=== PATIENT | male | born 1940 | race Two or more races ===

== ENCOUNTER 2017-07-10 06:37 | Day surgery (SDC) | payer MEDICARE, BC, SELFPAY ==
--- NOTE | 2017-07-06 14:50 | Pre-Procedure Note/Attestation ---
Pre-Procedure Note/Attestation Complete Prior to Procedure Planned Procedure: right Procedure Narrative: 1. CATARACT EXTRACTION WITH PHACO AND PC IOL IMPLANTATION, RIGHT EYE. 2.LIMBAL RELAXING INCISION, RIGHT EYE. 3.MALYUGIN RING INSERTION, RIGHT EYE FOR FLOPPY IRIS SYNDROME. 4.COMPLEX CATARACT , RIGHT EYE Indications for Procedure Pre-Operative Diagnosis: 1. CATARACT ,RIGHT EYE. 2. ASTIGMATISM, RIGHT EYE. 3. FLOPPY IRIS SYNDROME,RIGHT EYE 4. COMPLEX CATARACT , RIGHT EYE. Attestation I attest that I discussed the nature of the procedure; its benefits; risks and complications; and alternatives (and the risks and benefits of such alternatives ), prior to the procedure, with the patient (or the patient's legal business office representative). I attest that, if there was a reasonable possibility of needing a blood transfusion, the patient (or the patient's legal business office representative) was given the [facility] standardized written summary, pursuant to the Celestino Erick Blood Safety Act ([place] Health and Safety Code # 1645, as amended). I attest that I re-evaluated the patient just prior to the surgery and that there has been no change in the patient's H&P, except as documented below: TANK LARA Jul 06, 2017 14:50
[2017-07-10] VITALS (9 sets, daily range): BP systolic 139–188; BP diastolic 59–88
[~2017-07-10] VITALS: Ht 172.7 cm; Wt 73.5 kg
[2017-07-10] MEDS: Diclofenac Sod 0.1% Op Soln RIGHT EYE SCH ×3 (06:00→06:10)
[~2017-07-10 06:37] MED LIST: ASPIR 8181 MG ORAL; CALTRATE 600 +1 EAC2 PO; HYDREA500 MG PO; HYTRIN5 MG PO; ONE DAILY MEN'1 EAC1 PO; PROSCAR5 MG ORAL; VITAMIN B122500 MCG PO; VITAMIN D31000 UNI2 PO; [UNRECOGNIZED DRUG - OTHER] PO; acetaZOLAMIDE 125mg tab ORAL ONE
[2017-07-10] MEDS ORDERED: Dexamethasone 4mg/ml vial ONE (07:12)
[2017-07-10] MEDS ORDERED: Povidone-Iodine 5% opth solution ONE (07:12)
[2017-07-10] MEDS ORDERED: BSS 500ml btl ONE (07:12)
[2017-07-10] MEDS ORDERED: DiphenhydrAMINE 50mg/ml Inj ONE (07:12)
[2017-07-10] MEDS ORDERED: EPINEPHrine 1mg/1ml Amp ONE (07:12)
[2017-07-10] MEDS ORDERED: Sodium Hyaluronate 10 mg/ml 0.85ml ONE (07:13)
[2017-07-10] MEDS ORDERED: BSS 15ml BTL ONE (07:13)
[2017-07-10] MEDS ORDERED: Lidocaine 1% MPF 10mg/ml 5ml ONE ×2 (07:14→08:45)
[2017-07-10] MEDS ORDERED: Vigamox Opth Soln ONE (07:36)
[2017-07-10] MEDS ORDERED: Akten 3.5% 1ml Btl ONE (07:36)
[2017-07-10] MEDS ORDERED: Diclofenac Sod 0.1% Op Soln ONE (07:36)
[2017-07-10] MEDS ORDERED: Phenylephrine 10% Opth Soln 5ml ONE (07:36)
[2017-07-10] MEDS ORDERED: Tropicamide 1% Opth Soln ONE (07:36)
--- NOTE | 2017-07-10 07:42 | Anethesia Preoperative Eval ---
Anesthesia Pre-op PMH/ROS General Date of Evaluation: Jul 10, 2017 Anesthesiologist: Jesu ASA Score: ASA 2 Mallampati Score Class I : Soft palate, uvula, fauces, pillars visible Class II: Soft palate, uvula, fauces visible Class III: Soft palate, base of uvula visible Class IV: Only hard plate visible Mallampati Classification: Class II Surgeon: Sheila Diagnosis: Right cataract Surgical Procedure: Right cataract extraction with IOL Anesthesia History: none Family History: no anesthesia problems Allergies: Coded Allergies: NO KNOWN ALLERGIES (Verified Allergy, Unknown, 04/21/16) Medications: see eMAR Past Medical History Cardiovascular: Reports: HTN, arrhythmia, Denies: CAD, PA, other, valve dz Pulmonary: Denies: COPD, [place], asthma, other Gastrointestinal/Genitourinary: Denies: CRI, ESRD, GERD, other Neurologic/Psychiatric: Denies: CVA, TIA, dementia, depression/anxiety, other Endocrine: Reports: DM, hypothyroidism, Denies: other, steroids HEENT: Reports: cataract (R), Denies: [place] (L), [place] (R), cataract (L), glaucoma, other Hematology/Immune: Reports: anemia - chronic, Denies: DVT, bleeding disorder, other Musculoskeletal/Integumentary: Reports: OA, Denies: DDD, DJD, RA, edema, other PSxH Narrative: Denies Anesthesia Pre-op Phys. Exam Physician Exam see chart Constitutional: NAD Cardiovascular: RRR Respiratory: CTA Airway Exam Mallampati Score: Class II MO: limited ROM: limited Teeth: missing, intact Anesthesia Pre-op A/P Labs see chart Studies Pre-op Studies: EKG - RBBB Risk Assessment & Plan Assessment: ASA II Plan: MAC Status Change Before Surgery: No Pre-Antibiotics Drug: N/A ZEYNEP FRANCO M.D. Jul 10, 2017 07:42
[2017-07-10] MEDS: Phenylephrine 10% Opth Soln 5ml RIGHT EYE SCH ×3 (07:49→08:06)
[2017-07-10] MEDS: Akten 3.5% 1ml Btl RIGHT EYE SCH ×3 (07:49→08:06)
[2017-07-10] MEDS: Tropicamide 1% Opth Soln RIGHT EYE SCH ×3 (07:49→08:06)
[2017-07-10] MEDS: Vigamox Opth Soln RIGHT EYE SCH ×3 (07:50→08:06)
[2017-07-10 08:31] LABS: BASOPHILS % (AUTO) 2.2 % (0.0-2.0); EOSINOPHILS % (AUTO) 0.4 % (0.0-3.0); LYMPHOCYTES % (AUTO) 15.9 % (20.0-45.0); MEAN CORPUSCULAR HEMOGLOBIN 28.8 PG (27.0-31.0); MEAN CORPUSCULAR HGB CONC 32.4 G/DL (32.0-36.0); MEAN CORPUSCULAR VOLUME 89 FL (80-99); MEAN PLATELET VOLUME 6.5 FL (6.5-10.1); MONOCYTES % (AUTO) 7.9 % (1.0-10.0); NEUTROPHILS % (AUTO) 73.6 % (45.0-75.0); PLATELET COUNT 504 K/UL (150-450); RED BLOOD COUNT 3.24 M/UL (4.70-6.10); RED CELL DISTRIBUTION WIDTH 17.2 % (11.6-14.8); WHITE BLOOD COUNT 5.4 K/UL (4.8-10.8)
[2017-07-10 08:39] LABS: ANION GAP 4 (5-15); CALCIUM 9.4 mg/dL (8.6-10.2); CARBON DIOXIDE 26 mEQ/L (20-30); CHLORIDE 106 mEQ/L (98-107); CREATININE 1.1 mg/dL (0.7-1.2); HEMOLYSIS 0; POTASSIUM 4.1 mEQ/L (3.4-4.9); SODIUM 136 mEQ/L (135-145)
[2017-07-10] MEDS ORDERED: Sterile Water Irrig 1000ml IRRIG ONE (08:45)
[2017-07-10] MEDS ORDERED: NS Irrig 1000ml ONE (08:45)
[2017-07-10] MEDS ORDERED: fentaNYL 100 mcg/2 mL IV ONE (08:45)
[2017-07-10] MEDS ORDERED: LR 1000ml ONE (08:45)
--- NOTE | 2017-07-10 09:09 | Immediate Post-Op Evaluation ---
Immediate Post-Op Evalulation Immediate Post-Op Evalulation Procedure: Right cataract extraction with IOL Date of Evaluation: Jul 10, 2017 Time of Evaluation: 09:43 IV Fluids: 200 Blood Products: 0 Estimated Blood Loss: 0 Urinary Output: 0 Blood Pressure Systolic: 148 Blood Pressure Diastolic: 98 Pulse Rate: 51 Respiratory Rate: 16 O2 Sat by Pulse Oximetry: 99 Temperature (Fahrenheit): 97.4 Pain Score (1-10): 0 Nausea: No Vomiting: No Complications 0 Patient Status: awake, reacts, patent, none Hydration Status: adequate Drug: N/A ZEYNEP FRANCO M.D. Jul 10, 2017 09:09
[2017-07-10] MEDS ORDERED: LR 1000ml 1,000 ML IVLG SCH (09:10)
--- NOTE | 2017-07-10 09:10 | 48 Hour Post Anesthesia Eval ---
Post Anesthesia Evaluation Procedure: Right cataract extraction with IOL Date of Evaluation: Jul 10, 2017 Blood Pressure Systolic: 159 0: 76 Pulse Rate: 78 Respiratory Rate: 16 Temperature (Fahrenheit): 97 O2 Sat by Pulse Oximetry: 99 Airway: patent Nausea: No Vomiting: No Pain Intensity: 0 Hydration Status: adequate Cardiopulmonary Status: at baseline Mental Status/LOC: patient returned to baseline Post-Anesthesia Complications: 0 Follow-up care needed: ready to discharge ZEYNEP FRANCO M.D. Jul 10, 2017 09:10
[2017-07-10] MEDS ORDERED: DiphenhydrAMINE 50mg/ml Inj IVP PRN (09:15)
--- NOTE | 2017-07-10 09:37 | Discharge Summary ---
Discharge Summary Discharge Summary Discharge Summary DATE OF ADMISSION: 07/10/2017 DATE OF DISCHARGE: 07/10/2017 REASON FOR HOSPITALIZATION:1- cataract right eye 2- floppy iris syndrome, right eye 3- Complex cataract,right eye SURGERY PERFORMED: CONDITION IN THE HOSPITAL:The patient tolerated the surgery without complications. DISCHARGE CONDITION: The patient was stable at discharge. DISCHARGE MEDICATIONS: 1. Vigamox eye drops one drop q.i.d, right eye 2. Prednisolone one drop q.i.d, right eye 3. Ilevro one drop qd, right eye POSTOPERATIVE ORDERS: The patient has to rest at home. No bending, No lifting, No watching Television tonight. POSTOPERATIVE FOLLOW UP: The patient will be followed in my office tomorrow morning at 7 o'clock. TANK LARA Jul 10, 2017 09:37
--- NOTE | 2017-07-10 09:40 | Brief Operative Note ---
Immediate Post Operative Note Operative Note Chief Complaint: Blurry vision difficulty driving and reading, right eye Pre-op Diagnosis: 1. CATARACT ,RIGHT EYE. 2. ASTIGMATISM, RIGHT EYE. 3. FLOPPY IRIS SYNDROME,RIGHT EYE 4. COMPLEX CATARACT , RIGHT EYE. Procedure: 1- Cataract extraction with phaco and PC IOL implantation, right eye 2- Malyugin ring insertion for floppy iris treatment 3- Complex cataract extraction, right eye Post-op Diagnosis: same as pre-op Surgeon: Tank Jauregui MD. Nanny/Household Manager: None Additional Surgeons: NOne Anesthesiologist: dr. Nails Anesthesia: MAC Specimen: none Complications: none Condition: stable Estimated Blood Loss: none Drains: none Implant(s) used?: Yes - Multifical PC IOl implanted in the right eye without complication TANK JAUREGUI Jul 10, 2017 09:40
--- NOTE | 2017-07-10 17:30 | Pre-op HX & Phy Repo 2 SIG ---
DATE OF ADMISSION: 07/10/2017 PRESURGICAL INTERNAL MEDICINE HISTORY AND PHYSICAL REASON FOR EVALUATION: I was asked by Dr. Raghav Jauregui to see this 77-year-old male who is going for elective surgery on the right eye. The patient has a cataract, right eye. Please see full Ophthalmology H and P by Dr. Raghav Jauregui. The patient was evaluated. Chart was reviewed. Past Medical History/Review Of Systems: Remarkable for history of benign prostatic hypertrophy, history of thrombocytosis, and history of osteoarthritis. Denies history of high blood pressure, chest pain, palpitation, or heart attack. No history of stroke or seizures. Denies history of GI bleeding or heartburn. Colonoscopy 3 years ago at [facility]. No history of thyroid problem. History of anemia, and he received treatment in the Hematology/Oncology office of 02:31. Denies history of renal failure. No thyroid problem. ALLERGIES: Denies allergy to medication or food. FAMILY HISTORY: Father from complication of brain tumor. Mother had osteoarthritis and from heart attack. SOCIAL HISTORY: The patient has a history of smoking. Alcohol occasionally. No street drugs. Current Medications: Proscar, Hytrin, vitamin B12, multivitamin, vitamin D3, calcium supplements, baby aspirin daily. 04:24. The patient was on 04:34 for more than 7 years. PHYSICAL EXAMINATION: GENERAL: The patient is an alert, well-developed, well-nourished male, in his 70s, no acute distress. VITAL SIGNS: Blood pressure 152/77, temperature 97.5, heart rate 64, and respirations 18. SKIN: Pale, dry, and warm. LYMPHATICS: Lymph nodes not enlarged. HEENT: Head, normocephalic and atraumatic. Ears, no discharge, clear. Eyes, full description per Dr. Raghav Jauregui. No conjunctivitis or jaundice. Mouth, clear and moist. No dentures. NECK: Supple. No jugular vein distention. Carotid pulses 2+. Trachea midline. CHEST: No deformity or asymmetry. LUNGS: Clear to auscultation and percussion. No rales or rhonchi. No wheezing. HEART: Sinus bradycardia, 51 per minute. No ectopy. No murmur. No S3 or S4. ABDOMEN: Soft. No rebound. No palpable mass. EXTREMITIES: No edema. No varicose veins. No calf tenderness. GENITOURINARY: History of BPH. Nocturia x3. CVA nontender. No renal failure. NEUROLOGIC: No tremor. No nystagmus. LABORATORY AND DIAGNOSTIC DATA: Fasting blood sugar 99, BUN 22, and creatinine 1.2. Hemoglobin 9.3. Electrocardiogram, sinus bradycardia, sinus arrhythmia, first-degree AV block, right bundle-branch block. IMPRESSION: 1. Cataract, right eye. 2. Benign prostatic hypertrophy. 3. Anemia. 4. History of thrombocytosis. 5. 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 PLAN: Cataract extraction, right eye with intraocular lens implant by Dr. Raghav Jauregui. CONCLUSION: The patient is alert. Vital signs stable. The patient is anemic and has a history of benign prostatic hypertrophy. The patient's vital signs stable. The patient's condition optimized for surgery. He did not eat or drink from last night. Thank you very much, Dr. Jauregui, for the privilege to participate in presurgical care of this interesting patient. Jigar Torres M.D. DR: DEVYN JOB#: [id number] CC:
--- NOTE | 2017-07-11 05:45 | Operative Note - Dictated ---
DATE OF OPERATION: 07/10/2017 FACILITY: [facility]. SURGEON: Raghav Jauregui M.D. TOP DYEING MACHINE LOADER: None. ANESTHESIOLOGIST: Dr. Nails. ANESTHESIA: Monitored anesthesia care (MAC). PREOPERATIVE DIAGNOSES: 1. Cataract, right eye. 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 POSTOPERATIVE DIAGNOSES: 1. Cataract, right eye. 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 SURGERY PERFORMED: 1. Cataract extraction phacoemulsification of posterior chamber intraocular lens implantation in the right eye. 2. Limbal relaxing incision for astigmatism in the right eye. 3. Insertion of Malyugin ring for treatment of floppy iris. INDICATION FOR SURGERY: The patient is a 77-year-old gentleman with history of anemia, benign prostatic hypertrophy, hypertension, and hypercholesterolemia. The patient is taking aspirin, Proscar, and . He is complaining of blurred vision in both eyes. On examination of the right eye, the cornea is clear. Anterior chamber is clean and quiet. Pupillary reflex is normal. No RAPD. There is 4+ nuclear sclerosis and 2+ cortical cataract. The fundus shows normal optic disc, normal macula and periphery retina is flat. To improve his vision in the right eye, the cataract has to be removed and posterior chamber intraocular lens has to be implanted. INFORMED CONSENT: The nature of the surgery, risks, benefits, alternatives, and potential complications were explained all in detail to the patient. The potential complications including, but not limited to bleeding, infection, posterior capsular rupture, lens subluxation, flat anterior chamber, iris prolapse, uveitis, corneal edema, macular edema, endophthalmitis, retinal detachment, loss of vision, and even loss of the eye were all explained in detail to the patient. The patient voiced understanding and accepted all the complications. The alternatives including accommodating lens, multifocal lens, toric lens, and conventional cataract surgery with limbal relaxing incision (LRI) for treatment of astigmatism were all explained in detail to the patient. He voiced understanding. The patient elected to have cataract surgery in the right eye with limbal relaxing incision for treatment of astigmatism and insertion of multifocal lens IOL. Then, he signed a consent form, which is in the chart. DESCRIPTION OF SURGERY AND FINDINGS: Following that, the patient was taken to the operation room in a stable condition. Lidocaine gel Akten 3.5% were applied to the conjunctiva of the right eye. IV sedation was given by the anesthesiologist, Dr. Nails. After adequate anesthesia and sedation had been achieved, the right eye was prepped and draped in a sterile fashion for intraocular surgery. Following that, the speculum was placed in the right eye. Before the patient was taken to the operation room, the cornea was marked at 180 and 90 meridian. In the operating room, using a corneal marker and marking pen, the steep meridian of the cornea was marked. Following that, using a samy knife, two parallel incisions were made in the steep meridian of the cornea to treat the patient's astigmatism. Following that, using a Super Sharp knife, a clear corneal side port was created. Following that, 1% lidocaine without preservative (MPF) was injected into the anterior chamber. Viscoelastic agent Healon was injected into the anterior chamber. Following that, using a 2.8 mm keratome, clear corneal temporal keratotomy was performed. Viscoelastic agent Healon was injected into the anterior chamber again. Following that, a Malyugin ring was inserted into the anterior chamber. Following that, a coil after Malyugin ring was engaged with sphincter of the right eye. Following that, a Vision Blue was injected under the viscoelastic agent to stain the anterior capsule of the lens. Following that, a clear viscoelastic agent was injected into the anterior chamber. Under the viscoelastic agent, an anterior capsulotomy was performed in the fashion of capsulorrhexis beautifully. Following that, all viscoelastic agent was removed from the anterior chamber. Hydrodissection and hydrodelineation was performed with balanced salt solution and nucleus was freed. Following that, viscoelastic agent was injected into the anterior chamber again to protect endothelium of the cornea. Following that, with phacoemulsification machine in the fashion of horizontal chop, the nucleus was removed in toto. Cortical material was removed from the capsular bag and the capsular bag was polished with irrigation aspiration unit. Following that, the capsular bag was filled with viscoelastic agent. Following that, a +18.5 diopter ZLB00 foldable PCIOL with serial number [id number] was inserted into the capsular bag. Using a Sinskey hook, the lens was manipulated. Raghav Jauregui M.D. DR: MARTIN JOB#: [id number] CC:
--- NOTE | 2017-07-11 15:47 | Cardiology Report ---
APPROVED REPORT EKG Measurement Heart [id number] Sinus bradycardia with sinus arrhythmia with 1st degree AV block Right bundle branch block Abnormal ECG
--- NOTE | 2017-07-12 08:45 | Operative Note - Dictated ---
ADDENDUM The lens was manipulated and put in the proper position with Sinskey hook. Following that, the viscoelastic agent was removed from the anterior and posterior part of the lens. Following that, the anterior chamber was filled with balanced salt solution and the wound was hydrated with balanced salt solution. The patient tolerated the surgery without complications. At the end of the surgery, Vigamox eye drops were applied to the conjunctiva of the right eye. The eye was patched with a clear sterile fenestrated shield. Following that, the patient was transferred to the recovery room. In the recovery room, 125 mg of Diamox was given by mouth stat. Postoperative orders and directions were given to the patient. The patient will be discharged home upon stabilization. The patient will be followed in my office tomorrow morning. Raghav Jauregui M.D. DR: APOLONIA JOB#: [id number] CC:
== END 2017-07-10 11:00 | disposition home or self-care (01) ==
LOC: SUR 06:37
DX: H25.11 Age-related nuclear cataract, right eye (principal); H25.011 Cortical age-related cataract, right eye; H21.81 Floppy iris syndrome; H52.201 Unspecified astigmatism, right eye; N40.0 Benign prostatic hyperplasia without lower urinary tract symptoms; M19.90 Unspecified osteoarthritis, unspecified site; D64.9 Anemia, unspecified; I10 Essential (primary) hypertension; I45.10 Unspecified right bundle-branch block; R00.1 Bradycardia, unspecified; I44.0 Atrioventricular block, first degree; E03.9 Hypothyroidism, unspecified; E78.00 Pure hypercholesterolemia, unspecified; Z79.82 Long term (current) use of aspirin
CPT/HCPCS: 36415; 66982; 66999; 80048; 82962; 85025; 93005; J0171; J1100; J1200; J3010; J7120; V2632; 94003; 94150

== ENCOUNTER 2017-10-09 06:37 | Day surgery (SDC) | payer MEDICARE, BC, SELFPAY ==
--- NOTE | 2017-10-05 12:34 | Pre-Procedure Note/Attestation ---
Pre-Procedure Note/Attestation Complete Prior to Procedure Planned Procedure: left Procedure Narrative: 1. CATARACT EXTRACTION WITH PHACO AND PC IOL IMPLANTATION, LEFT EYE. 2.LIMBAL RELAXING INCISION, LEFT EYE. 3.MALYUGIN RING INSERTION, LEFT EYE FOR FLOPPY IRIS SYNDROME. 4.COMPLEX CATARACT , LEFT EYE Indications for Procedure Pre-Operative Diagnosis: 1. CATARACT ,LEFT EYE. 2. ASTIGMATISM, LEFT EYE. 3. FLOPPY IRIS SYNDROME ,LEFT EYE 4. COMPLEX CATARACT , LEFT EYE. Attestation I attest that I discussed the nature of the procedure; its benefits; risks and complications; and alternatives (and the risks and benefits of such alternatives ), prior to the procedure, with the patient (or the patient's legal equal opportunity representative). I attest that, if there was a reasonable possibility of needing a blood transfusion, the patient (or the patient's legal equal opportunity representative) was given the [facility] standardized written summary, pursuant to the Celestino Ketchum Blood Safety Act ([place] Health and Safety Code # 1645, as amended). I attest that I re-evaluated the patient just prior to the surgery and that there has been no change in the patient's H&P, except as documented below: TANK LARA Oct 05, 2017 12:34
[~2017-10-09] VITALS: Ht 172.7 cm; Wt 73.5 kg
[2017-10-09] VITALS (9 sets, daily range): BP systolic 136–160; BP diastolic 62–79
[~2017-10-09 06:37] MED LIST changes: +Akten 3.5% 1ml Btl ONE; +Ketorolac Tromethamine Opth 5ml Soln ONE; +Phenylephrine 10% Opth Soln 5ml ONE; +Tropicamide 1% Opth 15ml Soln ONE; +Vigamox Opth Soln 3ml ONE
[2017-10-09] MEDS: Vigamox Opth Soln 3ml LEFT EYE SCH ×3 (07:10→07:35)
[2017-10-09] MEDS: Tropicamide 1% Opth 15ml Soln LEFT EYE SCH ×3 (07:10→07:35)
[2017-10-09] MEDS: Ketorolac Tromethamine Opth 5ml Soln LEFT EYE SCH ×3 (07:10→07:34)
[2017-10-09] MEDS: Akten 3.5% 1ml Btl LEFT EYE SCH ×3 (07:11→07:35)
[2017-10-09] MEDS: Phenylephrine 10% Opth Soln 5ml LEFT EYE SCH ×3 (07:11→07:35)
[2017-10-09] MEDS ORDERED: Dexamethasone 4mg/ml vial ONE (08:36)
[2017-10-09] MEDS ORDERED: Lidocaine 1% MPF 10mg/ml 5ml ONE (08:36)
[2017-10-09] MEDS ORDERED: Tetracaine 0.5% Opth 4ml Soln ONE (08:36)
[2017-10-09] MEDS ORDERED: BSS 500ml btl ONE ×2 (08:36→09:39)
[2017-10-09] MEDS ORDERED: Carbachol 0.01% Op Soln 1.5ml vial ONE (08:37)
[2017-10-09] MEDS ORDERED: Povidone-Iodine 5% opth solution ONE (08:37)
[2017-10-09] MEDS ORDERED: EPINEPHrine 1mg/1ml Amp ONE (08:37)
[2017-10-09] MEDS ORDERED: Sodium Hyaluronate 10 mg/ml 0.85ml ONE ×3 (08:38→10:24)
[2017-10-09] MEDS ORDERED: BSS 15ml BTL ONE (08:38)
[2017-10-09] MEDS ORDERED: Sterile Water Irrig 1000ml IRRIG ONE (09:00)
[2017-10-09] MEDS ORDERED: fentaNYL 100 mcg/2 mL IV ONE (09:00)
[2017-10-09] MEDS ORDERED: Midazolam 2mg/2ml Inj ONE (09:00)
[2017-10-09] MEDS ORDERED: Propofol 200mg/20ml IV ONE (09:00)
[2017-10-09] MEDS ORDERED: NS Irrig 1000ml ONE (09:00)
[2017-10-09] MEDS ORDERED: LR 1000ml 1,000 ML IVLG SCH (09:12)
--- NOTE | 2017-10-09 09:12 | Anethesia Preoperative Eval ---
Anesthesia Pre-op PMH/ROS General Date of Evaluation: Oct 09, 2017 Time of Evaluation: 08:42 Anesthesiologist: Shilpa ASA Score: ASA 2 Mallampati Score Class I : Soft palate, uvula, fauces, pillars visible Class II: Soft palate, uvula, fauces visible Class III: Soft palate, base of uvula visible Class IV: Only hard plate visible Mallampati Classification: Class II Surgeon: Juventino Diagnosis: L eye cataract Surgical Procedure: L eye cataract extraction Anesthesia History: none Family History: no anesthesia problems Allergies: Coded Allergies: NO KNOWN ALLERGIES (Verified Allergy, Unknown, 10/09/17) Medications: see eMAR Past Medical History Cardiovascular: Reports: HTN - borderline, arrhythmia Pulmonary: Denies: asthma, COPD, [place], other Gastrointestinal/Genitourinary: Reports: GERD, Denies: CRI, ESRD, other Neurologic/Psychiatric: Denies: dementia, CVA, depression/anxiety, TIA, other Endocrine: Denies: DM, hypothyroidism, steroids, other HEENT: Reports: cataract (L), cataract (R), Denies: glaucoma, [place] (L), [place] (R), other Hematology/Immune: Reports: anemia, other - trombocytosis, Denies: DVT, bleeding disorder Musculoskeletal/Integumentary: Denies: OA, RA, DJD, DDD, edema, other PMH Narrative: as above PSxH Narrative: R eye cataract, hernia repair Anesthesia Pre-op Phys. Exam Physician Exam Last Vital Signs Date Time Temp Pulse Resp B/P (MAP) Pulse Ox O2 Delivery O2 Flow Rate FiO2 10/09/17 07:15 97.9 58 19 140/66 99 Room Air Constitutional: NAD Neurologic: CN 2-12 intact Cardiovascular: RRR, no M/R/G Respiratory: CTA Gastrointestinal: S/NT/ND Airway Exam Mallampati Score: Class II MO: full Neck: flexible ROM: full Teeth: intact Dentures: no upper, no lower Anesthesia Pre-op A/P Labs see chart Risk Assessment & Plan Assessment: ASA2 Plan: MAC Status Change Before Surgery: No CHANI SHARP M.D. Oct 09, 2017 09:12
[2017-10-09] MEDS ORDERED: DiphenhydrAMINE 50mg/ml Inj IVP PRN (09:15)
[2017-10-09] MEDS ORDERED: fentaNYL 100 mcg/2 mL IV PRN (09:15)
[2017-10-09] MEDS ORDERED: Triamcinolone 40mg/ml PF Vial ONE (09:32)
--- NOTE | 2017-10-09 10:25 | Discharge Summary ---
Discharge Summary Discharge Summary Discharge Summary DATE OF ADMISSION: 10/09/2017 DATE OF DISCHARGE: 10/09/2017 REASON FOR HOSPITALIZATION: cataract left eye 2- floppr Iris syndrome 3- complex cataract SURGERY PERFORMED: Cataract extraction with phaco and PC IOl implantation, left eye CONDITION IN THE HOSPITAL:The patient tolerated the surgery without complications. DISCHARGE CONDITION: The patient was stable at discharge. DISCHARGE MEDICATIONS: 1. Vigamox eye drops one drop q.i.d, OS 2. Prednisolone one drop q.i.d, OS 3. Acular eye drop one drop qid OS POSTOPERATIVE ORDERS: The patient has to rest at home. No bending, No lifting, No watching Television tonight. POSTOPERATIVE FOLLOW UP: The patient will be followed in my office tomorrow morning at 7 o'clock. TANK LARA Oct 09, 2017 10:25
--- NOTE | 2017-10-09 10:29 | Brief Operative Note ---
Immediate Post Operative Note Operative Note Pre-op Diagnosis: 1. CATARACT ,LEFT EYE. 2. ASTIGMATISM, LEFT EYE. 3. FLOPPY IRIS SYNDROME ,LEFT EYE 4. COMPLEX CATARACT , LEFT EYE. Procedure: 1- Cataract extractio with phaco and PC IOL implantation, left eye 2- Malyugin ring insertion for the floppy iris syndrome left eye 3- Complex cataract, left eye Post-op Diagnosis: same as pre-op Surgeon: Tank Jauregui MD Acoustical Installer: NOne Additional Surgeons: NOne Anesthesiologist: Dr. Jain Anesthesia: MAC Specimen: none Complications: yes Condition: stable Fluids: 500 ml Estimated Blood Loss: none Drains: none Implant(s) used?: Yes - Monofocal [facility] TANK JAUREGUI Oct 09, 2017 10:29
--- NOTE | 2017-10-09 10:56 | Immediate Post-Op Evaluation ---
Immediate Post-Op Evalulation Immediate Post-Op Evalulation Procedure: L eye cataract extraction with IOL Date of Evaluation: Oct 09, 2017 Time of Evaluation: 10:19 IV Fluids: 600 Blood Products: none Estimated Blood Loss: none Urinary Output: none Blood Pressure Systolic: 148 Blood Pressure Diastolic: 65 Pulse Rate: 72 Respiratory Rate: 20 O2 Sat by Pulse Oximetry: 99 Temperature (Fahrenheit): 97.5 Pain Score (1-10): 1 Nausea: No Vomiting: No Complications none Patient Status: awake, patent, none Hydration Status: adequate CHANI SHARP M.D. Oct 09, 2017 10:56
--- NOTE | 2017-10-09 11:22 | 48 Hour Post Anesthesia Eval ---
Post Anesthesia Evaluation Procedure: L eye cataract extraction with IOL Date of Evaluation: Oct 09, 2017 Time of Evaluation: 11:21 Blood Pressure Systolic: 158 0: 74 Pulse Rate: 68 Respiratory Rate: 20 Temperature (Fahrenheit): 97.5 O2 Sat by Pulse Oximetry: 99 Airway: patent Nausea: No Vomiting: No Pain Intensity: 1 Hydration Status: adequate Cardiopulmonary Status: stable Mental Status/LOC: patient returned to baseline Follow-up Care/Observations: n/a Post-Anesthesia Complications: none Follow-up care needed: ready to discharge CHANI SHARP M.D. Oct 09, 2017 11:22
--- NOTE | 2017-10-09 21:45 | Operative Note - Dictated ---
DATE OF OPERATION: 10/09/2017 FACILITY: [facility]. SURGEON: Raghav Jauregui M.D. VARNISH COOKER: None. ANESTHESIOLOGIST: Omid Massey M.D. ANESTHESIA: Monitored anesthesia care (MAC). PREOPERATIVE DIAGNOSES: 1. Cataract, left eye. 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 POSTOPERATIVE DIAGNOSES: 1. Cataract, left eye. 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 SURGERY PERFORMED: 1. Cataract extraction with phacoemulsification and posterior chamber intraocular lens implantation in the left eye. 2. Anterior vitrectomy. 3. Insertion of Malyugin ring for treatment of floppy iris syndrome. INDICATIONS FOR SURGERY: The patient is a 77-year-old gentleman with history of anemia, benign prostatic hypertrophy, hypertension, and hypercholesterolemia. The patient is taking aspirin, Proscar, and Diovan. He is complaining of blurry vision in the left eye. He had cataract surgery in the right eye one month ago and he is happy with the result. On examination of the left eye, the cornea is clear. Anterior chamber is clear and quiet, but very shallow. Pupillary reflex is normal. There is no RAPD. There is 4+ nuclear sclerosis and 2+ cortical cataract. The funduscopy shows normal optic disc, normal macula, and periphery retina is flat. To improve his vision in the left eye, the cataract has to be removed and posterior chamber intraocular lens has to be implanted. INFORMED CONSENT: The nature of the surgery, risks, benefits, alternatives, and potential complications were all explained in detail to the patient in his language, Farsi. The potential complications including, but not limited to bleeding, infection, posterior capsular rupture, lens subluxation, flat anterior chamber, iris prolapse, uveitis, corneal edema, macular edema, endophthalmitis, retinal detachment, loss of vision, and even loss of the eye were all explained in detail to the patient in his language, Farsi. The patient voiced understanding and accepted all the complications. The alternatives including accommodating lens, multifocal lens, toric lens, and conventional cataract surgery with limbal relaxing incision (LRI) for treatment of astigmatism were all explained in detail to the patient. He voiced understanding. The patient elected to have cataract surgery in the left eye with limbal relaxing incision for treatment of astigmatism and insertion of a multifocal lens. Then, he signed a consent form, which is in the chart. DESCRIPTION OF SURGERY AND FINDINGS: Following that, the patient was taken to the operating room in a stable condition. Lidocaine gel Akten 3.5% were applied to the conjunctiva of the left eye. IV sedation was given by the anesthesiologist, Dr. Massey. After adequate anesthesia and sedation had been achieved, the left eye was prepped and draped in a sterile fashion for intraocular surgery. Following that, a speculum was placed in the left eye. Before the patient was taken to the operation room, the cornea was marked at both 180 and 90 meridian. In the operating room, using a corneal marker and marking pen, the steep meridian of the cornea was marked. Following that, using a samy knife, two parallel incisions were made to the steep meridian of the cornea to treat the patient's astigmatism. Following that, using a Super Sharp knife, a clear corneal side port was created. Following that, 1% lidocaine without preservative (MPF) was injected into the anterior chamber. Viscoelastic agent, Healon, was injected into the anterior chamber. Following that, using a 2.8 mm keratome, a clear corneal temporal keratotomy was performed. Viscoelastic agent, Healon, was injected into the anterior chamber again. Following that, a Malyugin ring was inserted into the anterior chamber. Following that, the coils of the Malyugin ring were engaged with the sphincter of the left eye. A samy shaped space was created for safe phacoemulsification. Following that, Vision Blue was injected under the viscoelastic agent to stain the anterior capsule of the lens. Following that, a clear viscoelastic agent was injected into the anterior chamber. Under the viscoelastic agent, an anterior capsulotomy was performed in the fashion of capsulorrhexis beautifully. Following that, all viscoelastic agent was removed from the anterior chamber. Hydrodissection and hydrodelineation were performed with balanced salt solution and the nucleus was freed. Following that, viscoelastic agent Healon was injected into the anterior chamber again to protect the endothelium of the cornea. Following that, using phacoemulsification machine in the fashion of horizontal chop, the nucleus was chopped in six pieces. Following that, the first piece of the nucleus was removed from phacoemulsification machine in the fashion of quadrant . I then removed the inferior quadrant of the nucleus. There was a rent in the posterior capsule. Right away, I then injected viscoelastic agent into the posterior chamber and then phacoemulsification handpiece was removed from the anterior chamber. Following that, the corneal groove was enlarged and pieces of the nucleus were removed from the capsular bag. Following that, anterior automated vitrectomy was performed. Following that, the anterior chamber was cleaned from the viscoelastic agent. Following that, using irrigation aspiration, all the nuclear cortical material was removed from the capsular bag. Following that, the anterior chamber and posterior chamber were filled with viscoelastic agent. Following that, a +19 diopter, [id number] foldable three-piece IOL was inserted into the posterior chamber with the lens serial #[id number]. Then, the three-piece lens was manipulated and put in the proper position in the angle between the iris and anterior capsule. Following that, the viscoelastic agent was removed from the anterior chamber. Following that, with 10-0 nylon, three stitches were placed on the corneal incision and the incision was sealed and buried into the corneal tissue. Following that, the anterior chamber was filled with balanced salt solution and the wound was checked for leakage. There was no leakage. Dexamethasone and gentamicin was injected sub-tenon. Then, the eye was patched with eye pad and fenestrated shield. The patient tolerated the surgery with a complication that was managed. At the end of the surgery, the eye was patched and the patient was transferred to the recovery room. In the recovery room, 125 mg Diamox was given by mouth stat. Postoperative orders and directions were given to the patient. The patient will be discharged home upon stabilization. The patient will be followed in my office tomorrow morning. Raghav Jauregui M.D. DR: ELENA JOB#: [id number] CC:
--- NOTE | 2017-10-10 16:48 | Cardiology Report ---
APPROVED REPORT EKG Measurement Heart [id number] Sinus bradycardia with 1st degree AV block with premature supraventricular complexes Right bundle branch block Abnormal ECG
--- NOTE | 2017-10-15 17:15 | Pre-op HX & Phy Repo 2 SIG ---
DATE OF ADMISSION: 10/09/2017 REASON FOR EVALUATION: I was asked by Dr. Raghav Jauregui to see this 77-year-old male who is going for elective surgery on the right eye. The patient has a cataract, left eye. Please see full ophthalmology History and Physical by Dr. Raghav Jauregui. The patient was evaluated. Chart was reviewed. PAST MEDICAL HISTORY AND REVIEW OF SYSTEMS: Denies history of chest pain, palpitation, heart attack, or heart problems. There is history of anemia, benign prostatic hypertrophy, and elevation of uric acid. . No history of stroke. No hypertension. Denies history of renal failure or respiratory problems. No diabetes or thyroid problem. PAST SURGICAL HISTORY: Bilateral inguinal hernia repair and right eye cataract surgery. MEDICATIONS: Current medications include aspirin 81 mg daily, calcium supplement, vitamin D3, multivitamin, prednisone 5 mg, finasteride, vitamin B12, Coenzyme Q10, and terazosin. ALLERGIES: None known. HABITS: The patient denies history of smoke. Occasional alcohol. No street drug. FAMILY HISTORY: Mother has osteoarthritis and father has brain cancer tumor. PHYSICAL EXAMINATION: GENERAL: A well-developed, well-nourished male in his 70s. Weight 165 pounds. VITAL SIGNS: Blood pressure 114/66, temperature 97.5 degrees, pulse 68, and respirations 19. SKIN: Dry, clear, and warm. No rashes. No ulcers. LYMPH NODES: Not enlarged. HEENT: Head, normocephalic. Ears, clear. Eyes, full description per Dr. Jauregui. Mouth, clear and moist. No dentures. NECK: No jugular venous distention. Carotid artery +2. Trachea midline. No thyroid gland nodes or enlargement. CHEST: No deformity or asymmetry. LUNGS: Clear. No rales or rhonchi. HEART: Heart sounds regular. No murmur. No S3 or S4. ABDOMEN: Soft. Benign. No palpable mass. No rebound. EXTREMITIES: No edema. No varicose vein. GENITOURINARY: History of BPH. No CVA tenderness. NERVOUS SYSTEM: No tremor. No nystagmus. LABORATORY AND DIAGNOSTIC DATA: Electrocardiogram, sinus bradycardia 59 per minute, PVCs, third-degree AV block, right bundle branch block. The patient did not eat or drink from 9:30 p.m. yesterday. Laboratory today showed hemoglobin of 10.0. IMPRESSION: 1. Cataract, left eye. 2. Anemia and thrombocytosis. 3. Benign prostatic hypertrophy. 4. 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 5. Hyperuricemia. PLAN: Cataract extraction, left eye with intraocular lens implantation by Dr. Raghav Jauregui. CONCLUSION: The patient is in normal sinus with normal vital signs. EKG showed a right bundle-branch block and third-degree AV block and PVCs. The patient has bone marrow suppression and follows with Dr. Johns, oncologist. The patient is on prednisone. The patient did not eat or drink from 9 p.m. yesterday. The patient's condition optimized for surgery. Thank you very much, Dr. Raghav Jauregui, for the privilege to participate in the presurgical care of this interesting patient. Jigar Torres M.D. DR: SANTIAGO JOB#: [id number] CC:
== END 2017-10-09 11:40 | disposition home or self-care (01) ==
LOC: SUR 06:37
DX: H26.9 Unspecified cataract (principal); H21.81 Floppy iris syndrome; D64.9 Anemia, unspecified; N40.0 Benign prostatic hyperplasia without lower urinary tract symptoms; I10 Essential (primary) hypertension; K21.9 Gastro-esophageal reflux disease without esophagitis
CPT/HCPCS: 66982; 67005; 93005; J0171; J1100; J2250; J2704; J3010; J3300; V2632; 94003; 94150